=== PATIENT | male | born 1950 | race Caucasian/White ===

== ENCOUNTER 2017-03-12 07:04 | Emergency (ER) | payer MEDICAID, OTHER ==
[~2017-03-12] VITALS: Ht 167.6 cm; Wt 88.0 kg
[2017-03-12 07:08] VITALS: Ht 167.6 cm; Wt 88.0 kg
[2017-03-12] MEDS ORDERED: KETOROLAC 30 MG INJ IM STA (07:45)
--- NOTE | 2017-03-12 08:19 | ERD ---
ER Documentation Chief Complaint Date/Time DATE: 03/12/17 TIME: 08:13 Chief Complaint lower back pain from a tripped and fall,no KO HPI Patient is a 66-year-old male who presents emergency department for concerns of lower back pain and left hip pain after a fall injury. Patient states that he was moving boxes out of a van when he fell backwards 3 days ago. Patient states that his left buttocks and left hip hurts when ambulating however the patient is able to ambulate with only a slight limp. Patient does report some radiation of the pain down his left leg. Patient denies any saddle anesthesia, urinary incontinence, stool incontinence, dysuria, frequency, hematuria. Patient denies any fever or chills. Patient denies any loss of consciousness. Patient denies any head injury. Patient does recall full events of the injury and denies any dizziness or lightheadedness prior to fall injury. ROS All systems reviewed and are negative except as per history of present illness. Medications Home Meds Active Scripts Acetaminophen* (Tylophen*) 500 Mg Capsule, 1 CAP PO Q6H Y for PAIN AND OR ELEVATED TEMP, #20 CAP Prov:DANIEL MCCRARY PA-C 03/12/17 Tramadol HCl (Tramadol HCl) 50 Mg Tablet, 50 MG PO Q4 Y for PAIN, #15 TAB Prov:DANIEL MCCRARY PA-C 03/12/17 Reported Medications [none] Unknown Strength No Conflict Check 04/10/16 Allergies Allergies: Coded Allergies: No Known Allergy (Unverified , 04/10/16) PMhx/Soc History of Surgery: Yes (cholecystectomy) Anesthesia Reaction: No Hx Neurological Disorder: No Hx Respiratory Disorders: No Hx Cardiac Disorders: No Hx Psychiatric Problems: No Hx Miscellaneous Medical Probl: No Hx Alcohol Use: No Hx Substance Use: No Hx Tobacco Use: No Smoking Status: Former smoker Physical Exam Vitals Vital Signs Date Time Temp Pulse Resp B/P Pulse Ox O2 Delivery O2 Flow Rate FiO2 03/12/17 07:08 98.0 88 18 169/77 98 Physical Exam GENERAL: Well-developed, well-nourished male. Appears in no acute distress. HEAD: Normocephalic, atraumatic. EYES: Pupils are equally reactive bilaterally. EOMs grossly intact. No conjunctival erythema. ENT: Moist mucous membranes. No uvula deviation. No kissing tonsils. NECK: Supple. No meningismus. Normal range of motion of the neck. Nontender palpation of the cervical spine. LUNG: Clear to auscultation bilaterally. No rhonchi, wheezing, rales or coarse breath sounds. HEART: Regular rate and rhythm. No murmurs, rubs or gallops. Hip Exam: No deformity, step-offs, erythema, ecchymosis or swelling. Skin intact. Tender to palpation of the left iliac crest. BACK: Tender to palpation of the left lumbar paraspinal muscles. Nontender to palpation of the midline spine. Positive straight leg raise on the left. EXTREMITIES: Equal pulses bilaterally. No peripheral clubbing, cyanosis or edema. No unilateral leg swelling. NEUROLOGIC: Alert and oriented. Moving all four extremities without any difficulty. Normal speech. Slight limp when ambulating, however stable gait. SKIN: Normal color. Warm and dry. No rashes or lesions. Results 24 hrs Current Medications Medications (Trade) Dose Ordered Sig/Missy Route PRN Reason Start Time Stop Time Status Last Admin Dose Admin Ketorolac Tromethamine (Toradol) 30 mg ONCE STAT IM 03/12/17 07:45 03/12/17 07:48 DC 03/12/17 07:52 Procedures/MDM ED COURSE: The patient was stable throughout ED course. I kept the patient and/or family informed of laboratory and diagnostic imaging results throughout the ED course. DIAGNOSTIC IMAGING: Read by radiologist. Patient: ANTHONY MEDINA : 1950 Age: 66 Sex: M MR #: [id number] DOS: 03/12/17 0745 Ordering MD: DANIEL MCCRARY PA-C Location: [facility] Room/Bed: PROCEDURE: XR Lumbar Spine. CLINICAL INDICATION: back pain TECHNIQUE: AP, lateral and cone-down lateral view of the lumbar spine were obtained. COMPARISON: No prior studies are available for comparison. FINDINGS: There is normal vertebral mineralization and alignment. No fracture or subluxation is seen. The disc spaces are normal in appearance. There are small to moderate lateral and anterior disc osteophyte complexes at L2 -3, L3-4, and L5-S1. The posterior elements are unremarkable. There are surgical clips in the right upper quadrant consistent with cholecystectomy. RPTAT: AA IMPRESSION: Mild to moderate sized anterior and lateral disc osteophyte complexes are noted. Status post cholecystectomy. Otherwise, unremarkable plain radiographs of the lumbar spine. Physician Agata Date Time Electronically viewed and signed by Physician Agata on 03/12/2017 08:47 RA/ CC: DANIEL MCCRARY PA-C DIAGNOSTIC IMAGING REPORT Patient: ANTHONY MEDINA : 1950 Age: 66 Sex: M MR #: [id number] DOS: 03/12/17 0745 Ordering MD: DANIEL MCCRARY PA-C Location: [facility] Room/Bed: PROCEDURE: XR pelvis and bilateral hips. CLINICAL INDICATION: pain TECHNIQUE: AP pelvis, frog lateral views of the bilateral hips were performed. COMPARISON: None. FINDINGS: There is normal mineralization and alignment. Internal fixation hardware consisting of a plate and screws are noted at the right acetabulum. No acute fracture or osseous lesion is identified. There are normal hip joints without evidence of arthritis or effusion. The soft tissues are unremarkable. RPTAT: AA IMPRESSION: Internal fixation hardware is noted at the right acetabulum. No significant osseous degenerative changes. Physician Agata Date Time Electronically viewed and signed by Physician Agata on 03/12/2017 08:49 RA/ CC: DANIEL MCCRARY PA-C . MEDICATIONS GIVEN: Toradol Patient tolerated medication well with no adverse reactions. Patient reported improvement in pain. MEDICAL DECISION MAKING: This is a 66-year-old male who presents with lower back pain and left hip pain after a fall injury 3 days ago. Patient was removing boxes from the back of the van when he fell backwards.. Vital signs were reviewed. Patient was afebrile. Patient denied any saddle anesthesia, urinary incontinence, bowel incontinence, night pain or recent trauma. I discussed the case with my supervising physician Dr. Gaxiola who advised me to order xrays. Lumbar series showed Mild to moderate sized anterior and lateral disc osteophyte complexes are noted. Status post cholecystectomy. Otherwise, unremarkable plain radiographs of the lumbar spine. Hip series showed Internal fixation hardware is noted at the right acetabulum. No significant osseous degenerative changes. Patient did report improvement in pain prior to discharge. Given these findings , the patient's presentation is most consistent with lumbar strain and hip pain. I have a much lower clinical concern for cauda equine syndrome, spinal fractures, epidural abscess, spinal metastases, osteomyelitis, aortic dissection , hip fracture, pyelonephritis or nephrolithiasis. Unable to rule out any ligament or tendon injuries. PRESCRIPTIONS: Tylenol, Tramadol DISCHARGE: At this time, patient is stable for discharge and outpatient management.Patient was given a copy of all imaging studies obtained today. RICE therapy and ROM exercises were advised to avoid stiffness. I have instructed the patient to follow-up with his/her primary care physician in 1-2 days. I have discussed with the patient the possibility of needing to see an hydrotechnical specialist for further workup and imaging if the pain persists. I have instructed the patient to promptly return to the ER for any new or worsening symptoms including increased pain, swelling, warmth, urinary incontinence, stool incontinence, weakness or numbness. The patient and/or family expressed understanding of and agreement with this plan. All questions were answered. Home care instructions were provided. Patients blood pressure was elevated (>120/80) but appears stable without evidence of hypertensive emergency, hypertensive urgency or end-organ failure. I had discussion with the patient about the risks of hypertension. I have advised the patient to follow up with his/her primary care physician for outpatient monitoring and treatment for hypertension in 2-3 days. I have instructed the patient to return to the ER for any new or worsening symptoms including chest pain, shortness of breath, headache, blurred vision, confusion, nausea, vomiting or LOC. Departure Diagnosis: Primary Impression: Hip pain, left Additional Impression: Lower back pain Chronicity: acute Back pain laterality: left Sciatica presence: with sciatica Sciatica laterality: sciatica of left side Qualified Code: M54.42 - Acute left-sided low back pain with left-sided sciatica Condition: Stable Patient Instructions: Back Pain (Acute Or Chronic) Referrals: COMM[facility]ITY [facility] YOU HAVE RECEIVED A MEDICAL SCREENING EXAM AND THE RESULTS INDICATE THAT YOU DO NOT HAVE A CONDITION THAT REQUIRES URGENT TREATMENT IN THE EMERGENCY DEPARTMENT. FURTHER EVALUATION AND TREATMENT OF YOUR CONDITION CAN WAIT UNTIL YOU ARE SEEN IN YOUR DOCTORS OFFICE WITHIN THE NEXT 1-2 DAYS. IT IS YOUR RESPONSIBILITY TO MAKE AN APPOINTMENT FOR FOLOW-UP CARE. IF YOU HAVE A PRIMARY DOCTOR --you should call your primary doctor and schedule an appointment IF YOU DO NOT HAVE A PRIMARY DOCTOR YOU CAN CALL OUR PHYSICIAN REFERRAL HOTLINE AT IF YOU CAN NOT AFFORD TO SEE A PHYSICIAN YOU CAN CHOSE FROM THE FOLLOWING [facility] [address] [facility] [address] [facility] [address] [facility] [address] [facility] [address] [facility]. [facility]. [address] [facility] [facility] YOU HAVE RECEIVED A MEDICAL SCREENING EXAM AND THE RESULTS INDICATE THAT YOU DO NOT HAVE A CONDITION THAT REQUIRES URGENT TREATMENT IN THE EMERGENCY DEPARTMENT. FURTHER EVALUATION AND TREATMENT OF YOUR CONDITION CAN WAIT UNTIL YOU ARE SEEN IN YOUR DOCTORS OFFICE WITHIN THE NEXT 1-2 DAYS. IT IS YOUR RESPONSIBILITY TO MAKE AN APPOINTMENT FOR FOLOW-UP CARE. IF YOU HAVE A PRIMARY DOCTOR --you should call your primary doctor and schedule and appointment IF YOU DO NOT HAVE A PRIMARY DOCTOR YOU CAN CALL OUR PHYSICIAN REFERRAL HOTLINE AT . IF YOU CAN NOT AFFORD TO SEE A PHYSICIAN YOU CAN CHOSE FROM THE FOLLOWING [facility] INSTITUTIONS: [facility] [address] [place] [address] [facility] [address] [place] [address] [facility] [address] [place] [address] [facility] Hours: Mon-Fri 9:00 AM - 5:00 PM Additional Instructions: Call your primary care doctor TOMORROW for an appointment during the next 1-2 days.See the doctor sooner or return here if your condition worsens before your appointment time. DANIEL MCCRARY PA-C Mar 12, 2017 08:19
--- NOTE | 2017-03-12 08:47 | RADRPT ---
PROCEDURE: XR Lumbar Spine. CLINICAL INDICATION: back pain TECHNIQUE: AP, lateral and cone-down lateral view of the lumbar spine were obtained. COMPARISON: No prior studies are available for comparison. FINDINGS: There is normal vertebral mineralization and alignment. No fracture or subluxation is seen. The disc spaces are normal in appearance. There are small to moderate lateral and anterior disc osteophyte complexes at L2-3, L3-4, and L5-S1. The posterior elements are unremarkable. There are surgical clips in the right upper quadrant consistent with cholecystectomy. RPTAT: AA IMPRESSION: Mild to moderate sized anterior and lateral disc osteophyte complexes are noted. Status post cholecystectomy. Otherwise, unremarkable plain radiographs of the lumbar spine. Physician Agata Date Time Electronically viewed and signed by Physician Agata on 03/12/2017 08:47 RA/
--- NOTE | 2017-03-12 08:49 | RADRPT ---
PROCEDURE: XR pelvis and bilateral hips. CLINICAL INDICATION: pain TECHNIQUE: AP pelvis, frog lateral views of the bilateral hips were performed. COMPARISON: None. FINDINGS: There is normal mineralization and alignment. Internal fixation hardware consisting of a plate and screws are noted at the right acetabulum. No acute fracture or osseous lesion is identified. There are normal hip joints without evidence of arthritis or effusion. The soft tissues are unremarkable. RPTAT: AA IMPRESSION: Internal fixation hardware is noted at the right acetabulum. No significant osseous degenerative changes. Physician Agata Date Time Electronically viewed and signed by Physician Agata on 03/12/2017 08:49 RA/
[2017-03-12] MEDS ORDERED: ACET500C5 PO (09:40)
[2017-03-12] MEDS ORDERED: TRAM50TA2 PO (09:40)
== END 2017-03-12 10:17 | disposition home or self-care (01) ==
LOC: FTE 07:04
DX: M25.552 Pain in left hip (principal); M54.42 Lumbago with sciatica, left side; Z87.891 Personal history of nicotine dependence
CPT/HCPCS: 72100; 73520; 96372; J1885; Z7502

== ENCOUNTER 2017-06-03 12:36 | Emergency (ER) | payer MEDICAID ==
[~2017-06-03] VITALS: Ht 165.1 cm; Wt 88.6 kg
[~2017-06-03 12:36] MED LIST: ACET500C5 PO; TRAM50TA2 PO
[2017-06-03 12:37] VITALS: Ht 165.1 cm; Wt 88.6 kg
--- NOTE | 2017-06-03 13:21 | ERD ---
ER Documentation Chief Complaint Chief Complaint DIARRHEA SINCE THURSDAY HPI 67y/o male patient with no significant medical history, presents to the emergency department with his c/o sudden onset of diarrhea 4 per day, watery, no blood or mucus noticed. Last episode 2 hours ago, associated with cramping pain, intermittent, 4 out of 10 and subjective fever. Possible suspicious food, positive sick contact at home. No recent history of traveling. Treatment attempted: None. Aggravating factors: Fatty food. Alleviating factors: Unknown. Denies chills, N/V/D. Previous evaluation: None. History was given by patient. ROS SYSTEMIC symptoms: no fever, chills, no night sweats, no weight loss EYE symptoms: No blurred vision, no eye discharge OTOLARYNGEAL symptoms: No hearing loss. No ear pain, no sore throat CARDIOVASCULAR symptoms: No chest pain or discomfort, no palpitations. PULMONARY symptoms: No dyspnea, no cough, no wheezing. GASTROINTESTINAL symptoms: Per HPI MUSCULOSKELETAL symptoms: No arthralgias, no muscle aches. NEUROLOGY symptoms: No confusion, no syncope, no numbness or tingling. SKIN: No rashes Medications Home Meds Active Scripts Diphenoxylate HCl/Atropine (Lomotil 2.5-0.025 mg Tablet) 1 Each Tablet, 1 TAB PO QID Y for DIARRHEA, #10 TAB Prov:AUDREY FARIA MD 06/03/17 Ciprofloxacin Hcl* (Ciprofloxacin Hcl*) 250 Mg Tablet, 250 MG PO BID for 3 Days , #6 TAB Prov:AUDREY FARIA MD 06/03/17 Acetaminophen* (Tylophen*) 500 Mg Capsule, 1 CAP PO Q6H Y for PAIN AND OR ELEVATED TEMP, #20 CAP Prov:DANIEL MCCRARY PA-C 03/12/17 Tramadol HCl (Tramadol HCl) 50 Mg Tablet, 50 MG PO Q4 Y for PAIN, #15 TAB Prov:DANIEL MCCRARY PA-C 03/12/17 Reported Medications [none] Unknown Strength No Conflict Check 04/10/16 Allergies Allergies: Coded Allergies: No Known Allergy (Unverified , 04/10/16) PMhx/Soc History of Surgery: Yes (cholecystectomy) Anesthesia Reaction: No Hx Neurological Disorder: No Hx Respiratory Disorders: No Hx Cardiac Disorders: No Hx Psychiatric Problems: No Hx Miscellaneous Medical Probl: No Hx Alcohol Use: No Hx Substance Use: No Hx Tobacco Use: No Physical Exam Vitals Vital Signs Date Time Temp Pulse Resp B/P Pulse Ox O2 Delivery O2 Flow Rate FiO2 06/03/17 12:37 99.3 67 17 154/76 97 Physical Exam Patient is in no acute distress, vital signs stable. Alert and fully oriented. EYES: PERRLA, EOMI, Sclera and conjunctiva appear normal. EARS: Canals clear, tympanic membranes WNL THROAT: Normal oropharynx. NECK: Supple, No lymphadenopathy. Full ROM without pain or tenderness. HEART: RRR, no rubs, murmurs, clicks or gallops. LUNGS: Clear to auscultation. ABDOMEN: Soft, non-tender without masses or hepatosplenomegaly. EXTREMITIES: No edema bilaterally. BACK: Full ROM, no deformity, normal back exam NEURO: Cranial nerves grossly intact, no motor or sensory deficit Procedures/MDM 67y/o male patient previously healthy, presents to the ED c/o diarrhea and subjective fever for 4 days. Vital signs stable, Physical exam unremarkable. Differential diagnosis include but not limited to: UTI, colitis, gastroenteritis , kidney stones, irritable bowel syndrome, inflammatory bowel syndrome, malabsorption syndrome, cholelithiasis, food intolerance, medication side effect , pancreatitis, diverticulitis, bowel obstruction. Physical examination and clinical presentation consistent most likely with infectious gastroenteritis. During the ED course the patient remained stable, no new complaints. Results and clinical impression discussed with patient who agrees with management. The patient is stable to be treated outpatient and will be discharged home with a Rx for Cipro abd lomotil for 3 days. Side effects of prescribed medications (headache, rash, nausea, vomiting, diarrhea) were reviewed. The patient was instructed to follow up with the primary care provider in the next 48h. If symptoms persist, worsen or new symptoms develop, then patient should return to the ED immediately. Instructions explained and given to patient in Serbian with acknowledgment and demonstrated understanding. Disclaimer: Inadvertent spelling and grammatical errors are likely due to EHR/ dictation software use and do not reflect on the overall quality of patient care. Also, please note that the electronic time recorded on this note does not necessarily reflect the actual time of the patient encounter. Departure Diagnosis: Primary Impression: Gastroenteritis Condition: Stable Patient Instructions: Bacterial Gastroenteritis Additional Instructions: Luiza carcamo [facility] para hough servicio. Esperamos que en hough visita a la fatimah de emergencia hough problema medico haya sido solucionado y que se sienta mucho mejor. Para estar seguros que hough mejoria sigue en proceso, le pedimos el favor de hacer belén christ de seguimiento medico con hough doctor primario en los proximos 2-4 schaeffer. Lleve con usted estos documentos y las medicinas recetadas. Si saumya sintomas empeoran y no puede tamiko a hough doctor, por favor regrese a fatimah de emergencia. En bandar que usted no tenga un mdico de atencin primaria: Llame al mdico o clnica comunitaria de referencia que aparece abajo colt las horas de consultorio para hacer belén christ para que le vean. CLINICAS: [facility] [phone] [facility] [phone] [facility] [phone] [facility] [phone] [facility] [facility] [phone] [facility] [phone] AUDREY MAURER MD Jun 03, 2017 13:21
[2017-06-03] MEDS ORDERED: CIPR-193 PO (13:40)
[2017-06-03] MEDS ORDERED: DIPH1TAB PO (13:40)
== END 2017-06-03 14:07 | disposition home or self-care (01) ==
LOC: FTE 12:36
DX: K52.9 Noninfective gastroenteritis and colitis, unspecified (principal)
CPT/HCPCS: 99283

== ENCOUNTER 2017-06-05 12:04 | Emergency (ER) | payer MEDICAID ==
[~2017-06-05] VITALS: Ht 162.6 cm; Wt 89.7 kg
[~2017-06-05 12:04] MED LIST changes: +CIPR-193 PO; +DIPH1TAB PO
[2017-06-05 12:25] VITALS: Ht 162.6 cm; Wt 89.7 kg
[2017-06-05] MEDS ORDERED: PANTOPRAZOLE (EC) 40 MG TAB PO ONE (13:00)
--- NOTE | 2017-06-05 13:04 | ERD ---
ER Documentation Chief Complaint Chief Complaint Pt with Epigastric pain X 4-5 days, seen for same 2 days ago. HPI Patient is a 67-year-old male who was seen in the ER 2 days ago for epigastric pain, vomiting and diarrhea, and was diagnosed with gastroenteritis. He was prescribed Lomotil and ciprofloxacin. She did not have any testing done at that time. Reports that he continues to have epigastric pain, but has not had any vomiting or diarrhea. He denies fever. He denies back pain. He denies dysuria or hematuria. He states that the pain is intermittent and lasts approximately 1 hour at a time. It is not exertional or associated with food. ROS All systems reviewed and are negative except as per history of present illness. Medications Home Meds Active Scripts Famotidine* (Pepcid*) 20 Mg Tablet, 20 MG PO BID for 5 Days, TAB Prov:EBENEZER MCGOVERN MD 06/05/17 Diphenoxylate HCl/Atropine (Lomotil 2.5-0.025 mg Tablet) 1 Each Tablet, 1 TAB PO QID Y for DIARRHEA, #10 TAB Prov:AUDREY FARIA MD 06/03/17 Ciprofloxacin Hcl* (Ciprofloxacin Hcl*) 250 Mg Tablet, 250 MG PO BID for 3 Days , #6 TAB Prov:AUDREY FARIA MD 06/03/17 Discontinued Reported Medications [none] Unknown Strength No Conflict Check 04/10/16 Discontinued Scripts Acetaminophen* (Tylophen*) 500 Mg Capsule, 1 CAP PO Q6H Y for PAIN AND OR ELEVATED TEMP, #20 CAP Prov:DANIEL MCCRARY PA-C 03/12/17 Tramadol HCl (Tramadol HCl) 50 Mg Tablet, 50 MG PO Q4 Y for PAIN, #15 TAB Prov:DANIEL MCCRARY PA-C 03/12/17 Allergies Allergies: Coded Allergies: No Known Allergy (Unverified , 04/10/16) PMhx/Soc Past medical history: None Past surgical history: Appendectomy, ankle surgery Social history: Denies tobacco, alcohol or illicit drugs History of Surgery: Yes (cholecystectomy) Anesthesia Reaction: No Hx Neurological Disorder: No Hx Respiratory Disorders: No Hx Cardiac Disorders: No Hx Psychiatric Problems: No Hx Miscellaneous Medical Probl: No Hx Alcohol Use: No Hx Substance Use: No Hx Tobacco Use: No Smoking Status: [facility] Family History: No coronary disease, No diabetes Physical Exam Vitals Vital Signs Date Time Temp Pulse Resp B/P Pulse Ox O2 Delivery O2 Flow Rate FiO2 06/05/17 14:25 98.2 70 17 125/73 99 Room Air 06/05/17 12:25 98.1 61 18 144/68 96 Physical Exam Const: Alert, no acute distress Head: Atraumatic Eyes: Normal Conjunctiva, No pallor, no icterus ENT: Normal External Ears, Nose and Mouth. Mucous membranes moist Neck: Full range of motion. No JVD Resp: Clear to auscultation bilaterally, No wheezes, no rales Cardio: Regular rate and rhythm, no murmurs Abd: Soft, Mild tenderness to epigastrium only, no rebound, no guarding, non distended. No pulsatile mass Skin: No petechiae or rashes Back: No midline or flank tenderness Ext: No cyanosis, or edema, 2+ pulses in 4 extremities Neur: Awake and alert, Cranial nerves II through XII intact bilaterally, strength and sensation full in 4 extremities. Psych: Normal Mood and Affect Result Diagram: 06/05/17 1300 Results 24 hrs Laboratory Tests Test 06/05/17 13:00 Sodium Level 142mmol/L Potassium Level 4.8mmol/L Chloride Level 104mmol/L Carbon Dioxide Level 32mmol/L Anion Gap 11 Blood Urea Nitrogen 12mg/dl Creatinine 0.74mg/dl Glucose Level 85mg/dl Calcium Level 8.7mg/dl Total Bilirubin 0.6mg/dl Direct Bilirubin 0.00mg/dl Indirect Bilirubin 0.6mg/dl Aspartate Amino Transf (AST/SGOT) 26IU/L Alanine Aminotransferase (ALT/SGPT) 29IU/L Alkaline Phosphatase 81IU/L Total Protein 7.3g/dl Albumin 3.7g/dl Globulin 3.60g/dl Albumin/Globulin Ratio 1.02 Lipase 94U/L Current Medications Medications (Trade) Dose Ordered Sig/Missy Route PRN Reason Start Time Stop Time Status Last Admin Dose Admin Pantoprazole (Protonix Tab) 40 mg ONCE ONCE PO 06/05/17 13:00 06/05/17 13:01 DC 06/05/17 12:56 Procedures/MDM EKG read by me: Time 1304, rate 60 Rhythm: Normal sinus [place]: Normal Intervals: Normal ST-T waves: no ischemic changes Ectopy: No Q-waves: No Q waves, borderline R-wave progression Impression: No evidence of ischemia or arrhythmia MDM: Patient is a 67-year-old male seen yesterday 2 days ago for gastroenteritis. He reports that his vomiting and diarrhea have resolved but he is having epigastric discomfort. He has a relatively benign exam and a nonischemic EKG. He has no evidence of cryptitis or significant electrolyte abnormality. His symptoms significantly improved with a single dose of pantoprazole. I suspect underlying gastritis. I will discharge him with a prescription for Pepcid, have advised him on return precautions and PMD follow- up. I advised him to stop Lomotil. He has no evidence of abdominal aortic aneurysm, hepatobiliary disease such as cholecystitis, or bowel obstruction. He has no symptoms suggestive of bleeding peptic ulcer. Departure Diagnosis: Primary Impression: Abdominal pain Abdominal location: epigastric Qualified Code: R10.13 - Epigastric pain Additional Impression: Gastritis Gastritis type: unspecified gastritis Chronicity: acute Gastritis bleeding : without bleeding Qualified Code: K29.00 - Acute gastritis without hemorrhage, unspecified gastritis type Condition: EBENEZER Preciado MD Jun 05, 2017 13:04
[2017-06-05 13:32] LABS: ALBUMIN 3.7 g/dl (3.3-4.9); ALBUMIN/GLOBULIN RATIO 1.02; BILIRUBIN,INDIRECT 0.6 mg/dl (0-1.1); BILIRUBIN,TOTAL 0.6 mg/dl (0.2-1.3); CALCIUM 8.7 mg/dl (8.4-10.2); CREATININE 0.74 mg/dl (0.61-1.24); POTASSIUM 4.8 mmol/L (3.5-5.1); TOTAL PROTEIN 7.3 g/dl (6.1-8.1)
[2017-06-05 14:25] VITALS: BP 125/73; PULSE 70; RESP 17; TEMP 98.2
[2017-06-05] MEDS ORDERED: FAMO-96 PO (14:46)
== END 2017-06-05 15:00 | disposition home or self-care (01) ==
LOC: E/R 12:04
DX: K29.00 Acute gastritis without bleeding (principal)
CPT/HCPCS: 80053; 83690; 93005; Z7502; Z7610

== ENCOUNTER 2017-08-04 08:28 | Emergency (ER) | END 2017-08-04 10:37 | disposition home or self-care (01) ==

== ENCOUNTER 2018-09-21 11:20 | Emergency (ER) | payer SELFPAY ==
[~2018-09-21] VITALS: Ht 157.5 cm; Wt 87.0 kg
[~2018-09-21 11:20] MED LIST changes: +ALBU18HF INHALATION; +ELEC100080 PO; +FAMO-96 PO; +GUAI5SYR2 PO; +IBUP-1542 PO; -TRAM50TA2 PO
[2018-09-21 11:54] VITALS: BP 152/71; PULSE 58; RESP 19; Ht 157.5 cm; Wt 87.0 kg
[2018-09-21] MEDS ORDERED: KETOROLAC 30 MG INJ IM STA (13:50)
[2018-09-21] MEDS ORDERED: HYDROCODONE/APAP (5/325) TAB PO ONE (14:00)
[2018-09-21] MEDS ORDERED: CYCL10TA7 PO (15:45)
[2018-09-21] MEDS ORDERED: TRAM50TA2 PO (15:45)
--- NOTE | 2018-09-21 15:48 | ERD ---
ER Documentation Chief Complaint Chief Complaint back pain due to fall today HPI 68-year-old male presents with low back pain after slipping backwards on to the floor today. He landed on his buttocks. He has low back pain. Denies bowel bladder incontinence, weakness, fevers, urinary complaints. 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 ROS All systems reviewed and are negative except as per history of present illness. Medications Home Meds Active Scripts Cyclobenzaprine Hcl* (Cyclobenzaprine Hcl*) 10 Mg Tablet, 10 MG PO TID, #20 TAB Prov:FACUNDO WELLS MD 09/21/18 Tramadol HCl (Tramadol HCl) 50 Mg Tablet, 50 MG PO Q4 PRN for PAIN, #20 TAB Prov:FACUNDO WELLS MD 09/21/18 Electrolyte,Oral (Pedialyte) 1,000 Ml Solution, 100 ML PO Q6 PRN for FEVER, #1000 ML Prov:MACY YANG PA-C 08/04/17 Albuterol Sulfate* (Ventolin HFA*) 18 Gm Hfa.aer.ad, 2 PUFF INHALATION Q6H, #1 INHALER Prov:MACY YANG PA-C 08/04/17 Guaifenesin-Dextromethorphan* (Robitussin* DM) 100MG/10MG/5ML Syrup, 10 ML PO Q6H PRN for COUGH for 5 Days, ML Prov:MACY YANG PA-C 08/04/17 Acetaminophen* (Tylophen*) 500 Mg Capsule, 1 CAP PO Q6H PRN for PAIN AND OR ELEVATED TEMP, #30 CAP Prov:MACY YANG PA-C 08/04/17 Ibuprofen* (Motrin*) 600 Mg Tab, 600 MG PO Q6, #30 TAB Prov:MACY YANG PA-C 08/04/17 Famotidine* (Pepcid*) 20 Mg Tablet, 20 MG PO BID for 5 Days, TAB Prov:EBENEZER MCGOVERN MD 06/05/17 Diphenoxylate HCl/Atropine (Lomotil 2.5-0.025 mg Tablet) 1 Each Tablet, 1 TAB PO QID PRN for DIARRHEA, #10 TAB Prov:NICHOLSON-LUNA,AUDREY MD 06/03/17 Ciprofloxacin Hcl* (Ciprofloxacin Hcl*) 250 Mg Tablet, 250 MG PO BID for 3 Days, #6 TAB Prov:AUDREY FARIA MD 06/03/17 Allergies Allergies: Coded Allergies: No Known Allergy (Unverified , 09/21/18) PMhx/Soc History of Surgery: Yes (cholecystectomy) Anesthesia Reaction: No Hx Neurological Disorder: No Hx Respiratory Disorders: No Hx Cardiac Disorders: No Hx Psychiatric Problems: No Hx Miscellaneous Medical Probl: No Hx Alcohol Use: No Hx Substance Use: No Hx Tobacco Use: No Smoking Status: Never smoker FmHx Family History: No diabetes, No coronary disease, No other Physical Exam Vitals Vital Signs Date Temp Pulse Resp B/P (MAP) Pulse Ox O2 O2 Flow FiO2 Time Delivery Rate 09/21/18 97.2 58 19 152/71 98 11:54 (98) Physical Exam Const: No acute distress Head: Atraumatic Eyes: Normal Conjunctiva ENT: Normal External Ears, Nose and Mouth. Neck: Full range of motion. No meningismus. Resp: Clear to auscultation bilaterally Cardio: Regular rate and rhythm, no murmurs Abd: Soft, non tender, non distended. Normal bowel sounds Skin: No petechiae or rashes Back: No midline or flank tenderness. Tenderness diffusely L4-5 area without squeezing midline tenderness or deformities. Patient ambulatory without deficits or weakness. Ext: No cyanosis, or edema Neur: Awake and alert Psych: Normal Mood and Affect Results 24 hrs Current Medications Medications Dose Sig/Missy Start Time Status Last (Trade) Ordered Route PRN Stop Time Admin Dose Reason Admin 1 tab ONCE ONCE 09/21/18 DC 09/21/18 Acetaminophen PO 14:00 13:56 / 09/21/18 14:01 Hydrocodone Bitart (Rocky (5/325)) Ketorolac 30 mg ONCE STAT 09/21/18 DC 09/21/18 Tromethamine IM 13:50 13:57 (Toradol) 09/21/18 13:53 Procedures/MDM X-ray LS-Spine 3V Interpreted by me: Bones: No fracture, or lytic lesions Joints: No dislocation Foreign body: None impression have degenerative changes lumbar spine without fracture or dislocation noted. Patient was given Toradol 30 mg IM and Rocky 5- mouth. Patient presents with low back pain after mechanical fall today. He has no signs of fracture, dislocation, deficits, ischemia, cauda equina syndrome, signs of bacterial infection. We treated with tramadol, Flexeril, ibuprofen, recommendations for exercises, primary care follow-up and return precautions. The patient was stable with no new complaints during the ER course. Clinically, there is no current evidence to suggest meningitis, sepsis, acute abdomen, pneumonia, strok e, acute coronary syndrome, pulmonary embolism, aortic dissection or any other emergent condition appearing to require further evaluation or hospitalization. Patient counseled regarding my diagnostic impression and care plan. Prior to discharge all questions answered. Pt agrees with treatment plan and understands strict return precautions. Pt is instructed to follow up with primary care provider within 24-48 hours. Precautionary instructions provided including instructions to return to the ER if not improving or for any worsening or changing symptoms or concerns. Departure Diagnosis: Primary Impression: Back pain Back pain location: low back pain Chronicity: acute Back pain laterality: bilateral Sciatica presence: without sciatica Qualified Codes: M54.5 - Low back pain Condition: Stable Patient Instructions: Back Exercises, Lumbar, Back Sprain/Strain Additional Instructions: X-ray normal. Examines normal hoy. Cheque otro vez con hough doctor primario en el proximo schaeffer or regresa para mas o nueva simptomas. FACUNDO WELLS MD Sep 21, 2018 15:48
== END 2018-09-21 15:59 | disposition home or self-care (01) ==
LOC: FTE 11:20
DX: M54.5 Low back pain (principal)
CPT/HCPCS: 72100; 96372; 99284; J1885